=== PATIENT | male | born 1960 | race Two or more races ===

== ENCOUNTER 2025-04-06 09:09 | Outpatient (AMB) | payer MEDICAID, SELFPAY ==
--- NOTE | 2025-04-06 09:14 | HO.NEPHOV_ITS ---
Vital Signs 04/06/25 09:35 Height 5 ft 6 in Weight 197 lb BMI 31.8 BP 124/80 Blood Pressure Location Lt brachial Position Sitting Pulse 65 Pulse Source Pulse Oximeter Pulse Oximetry (%) 97 Oxygen Delivery Method Room Air Intake Visit Reasons: ENP: Kidney Stone-LVM Review Analyst Required: Yes Review Analyst Language: Sem Manager Services: Review Analyst Offered & Declined ([facility] Review Analyst services refused, patient accompanied by daughter. ) Accompanied by: Daughter Allergies No Known Allergies Allergy (Verified 04/06/25 09:34) HPI Comments Details: I had the pleasure of seeing Brad in consultation for renal stones. He is 64 years of age and has been having renal calculi since late . He has lower back pain as well as intermittent B/L flank pain without hematuria. He had 2 ESWL. He has family H/O renal calculi( brother and daughter) but no ESRD or renal transplantation. He consumes normal diet. He has no urinary symptoms, fever, chills, nausea, vomiting. He denies taking excessive NSAID's. He has no H/O UTI's or JOSE. He denies hyperuricemia or gout. He claims to maintain good hydration. He is not a diabetic and his BP has been at goal. He had no new systemic complaints at the time of this office visit [facility] Medical History (Updated 04/06/25 @ 09:15 by James Arechiga MD) Kidney stone Surgical History (Updated 04/02/25 @ 09:03 by Daina Moyer MA) H/O abdominal surgery Family History (Updated 04/02/25 @ 09:05 by Daina Moyer MA) Mother Lung cancer Father Liver cirrhosis Review of Systems Const All systems reviewed & are unremarkable except as noted in HPI and below Physical Exam Const General: comfortable and no acute distress Orientation/consciousness: patient oriented x3 HEENT Head: Yes normocephalic Mouth: Normal oral and palatal mucosa present Eyes EOM: EOMs intact bilaterally Neck Neck: Yes supple Resp Auscultation: clear to auscultation bilaterally Cardio Jugular venous distension: no JVD Rate: regular rate GI Palpation (GI): Soft to palpation Auscultation: normal bowel sounds General: Yes no CVA tenderness Back/Spine/Pelvis Back: no CVA tenderness Skin General skin exam: no rashes or lesions noted Neuro General: patient oriented x3 and moves all extremities Extrem General: Yes no pedal edema Assessment & Plan Assessment & Plan (1) Kidney stone: Code(s): N20.0 - Calculus of kidney Category: Medical Plan Low sodium diet; Less meat, more fruits and vegetables in diet Renal USS, serum uric acid, ca, PTH and 24 hour urine studies ordered Needs to maintain good hydration; Will be a candidate for HCTZ &/ K citrate No family H/O oxaluria, medullary sponge kidney, ESRD/ renal Tx Further management is pending evolving data; Answered all questions Orders: Orders Uric Acid Today N20.0 - Calculus of kidney Electrolytes Today N20.0 - Calculus of kidney Protein Creatinine Ratio, Ur Today N20.0 - Calculus of kidney Calcium Today N20.0 - Calculus of kidney Blood Urea Nitrogen Today N20.0 - Calculus of kidney Creatinine Today N20.0 - Calculus of kidney Parathyroid Hormone Intact Today N20.0 - Calculus of kidney UA and rflx microscopic Today N20.0 - Calculus of kidney US renal BI 3 Weeks N20.0 - Calculus of kidney Coding Level of Care Code New Pt Level 4 (57389) Diagnoses Kidney stone N20.0
[2025-04-06 09:35] VITALS: BP 124/80; PULSE 65; O2SAT 97; BMI 31.8
--- OUTSIDE RECORDS SUMMARY | 2025-04-06 11:28 | XMS_ITS ---
Author Name [facility] Organization Unknown Care Team Organization Name Specialty Phone Email Start Date End Da te [facility] Renita Thorne MD Primary Care 05/29/2022 03/09/2024
--- OUTSIDE RECORDS SUMMARY | 2025-04-06 11:28 | XMS_ITS | Clinical Summary ---
Author Organization 175 [facility] Address [address] [place] [address] Phone Care Team Providers Care Golf Course Equipment Operator Name Role Phone Ayo Hernandez MD Primary Care Provider [phone] Allergies No known active allergies Medications No known medications Encounters Date Type Department Care Team Description 02/26/2025 Telephone Internal Medicine [facility] 175 [facility] [address] [place] [address] Ayo Hernandez MD 02/18/2025 8:45 AM EDT Office Visit Internal Medicine [facility] [address] [address] Ayo Hernandez MD Lumbar pain (Primary Dx); Kidney stones; Screening for malignant neoplasm of prostate from Last 3 Months Surgical History Surgery Date Site/Laterality Comments OTHER SURGICAL HISTORY PROCEDURE: ---- OTHER ----; COMMENT: nephrolithiasis ABDOMINAL SURGERY 05/24/2017 PROCEDURE: HISTORICAL ABDOMINAL SURGERY; COMMENT: Colonoscopy showed 30 cm of colon with a right colon-rectal anastomosis at 10 cm. Medical History Medical History Date Comments Nephrolithiasis 12/11/2017 DX:Nephrolithias is IFG (impaired fasting glucose) 12/11/2017 D X:IFG (impaired fasting glucose) Post-nasal drip 09/12/2018 DX:Post-nasal dr ip Obesity (BMI 30.0-34.9) 09/12/2018 DX:Obesi ty (BMI 30.0-34.9) Overweight (BMI 25.0-29.9) 04/24/2019 DX:Ov erweight (BMI 25.0-29.9) Family History Medical History Relation Name Comments Other: liver cirrhosis Father Pneumonia Father Lung cancer Mother Relation Name Status Comments Brother 1 Alive Brother 2 Alive Father (Age 61) Mother (Age 77) lung cance r Sister Alive Social History Tobacco Use Types Packs/Day Years Used Date Smoking Tobacco: Never Smokeless Tobacco: Never Alcohol Use Standard Drinks/Week Comments No 0 (1 standard drink = 0.6 oz pur e alcohol) Sex and Gender Information Value Date Recorded Sex Assigned at Not on file Legal Sex Male 5:38 AM EST Gender Identity Not on file Sexual Orientation Not on file Obstetrics History Last Filed Vital Signs Vital Sign Reading Time Taken Comments Blood Pressure 136/80 02/18/2025 8:47 AM EDT Pulse 61 02/18/2025 8:47 AM EDT Temperature 36.3 C (97.4 F) 02/18/2025 8:47 AM EDT Respiratory Rate - - Oxygen Saturation 97% 02/18/2025 8:47 AM EDT Inhaled Oxygen Concentration - - Weight 87.3 kg (192 lb 6.4 oz) 02/18/2025 8:47 A M EDT Height 167.6 cm (5' 6 ) 02/18/2025 8:47 AM EDT Body Mass Index 31.05 02/18/2025 8:47 AM EDT Plan of Treatment Health Maintenance Due Date Last Done Comments Pneumococcal Vaccine: 50+ Years (1 of 1 - PCV) 2010 Zoster Vaccines (1 of 2) 2010 Colorectal Cancer Screening: Colonoscopy 02/18/2024 HIV Screening 02/18/2024 Hepatitis C Screening 02/18/2024 Social Influencers of Health Screening 02/18/2024 Depression Screening 07/22/2024 COVID-19 Vaccine (4 - 2024-2 6 season) 2025 08/20/2021, 12/23/2020, 12/02/2020 Influenza Vaccine (#1) 2025 DTaP,Tdap,and Td Vaccines (2 - Td or Tdap) 03/08/2027 03/08/2017 Cholesterol Screening (Lipid Panel) 02/22/2030 02/22/2025, 12/20/2023 RSV Immunization Adult Patients (1 - 1-dose 75+ series) 2035 HIB Vaccines Aged Out No longer eligi ble based on patient's age to complete this topic HPV Vaccines Aged Out No longer eligi ble based on patient's age to complete this topic Hepatitis A Vaccines Aged Out No long er eligible based on patient's age to complete this topic Hepatitis B Vaccines Aged Out No long er eligible based on patient's age to complete this topic IPV Vaccines Aged Out No longer eligi ble based on patient's age to complete this topic MMR Vaccines Aged Out No longer eligi ble based on patient's age to complete this topic Meningococcal ACWY Vaccine Aged Out N o longer eligible based on patient's age to complete this topic Meningococcal B Vaccine Aged Out No l onger eligible based on patient's age to complete this topic RSV Immunization Patients Under 20 months Aged Out No longer eligible b ased on patient's age to complete this topic Varicella Vaccines Aged Out No longer eligible based on patient's age to complete this topic Procedures Procedure Name Priority Date/Time Associated Diagnosis Comments LOZANO URINE CULTURE TUBE Routine 02/22/2025 8:24 AM EDT Kidney stones Lumbar pain URINALYSIS WITH REFLEX MICROSCOPIC AND CULTURE Routine 02/22/2025 8:24 AM EDT Kidney stones Lumbar pain URINALYSIS WITH REFLEX MICROSCOPIC AND CULTURE Routine 02/22/2025 8:24 AM EDT Kidney stones Lumbar pain CULTURE URINE Routine 02/22/2025 8:24 AM EDT Kidney stones Lumbar pain CBC WITH AUTO DIFFERENTIAL Routine 02/22/2025 8:19 AM EDT Kidney stones Lumbar pain PROSTATE SPECIFIC ANTIGEN SCREEN Routine 02/22/2025 8:19 AM EDT Kidney stones Lumbar pain Screening for malignant neoplasm of prostate THYROID STIMULATING HORMONE Routine 02/22/2025 8:19 AM EDT Kidney stones Lumbar pain LIPID PANEL WITH REFLEX TO DIRECT LDL Routine 02/22/2025 8:19 AM EDT Kidney stones Lumbar pain COMPREHENSIVE METABOLIC PANEL Routine 02/22/2025 8:19 AM EDT Kidney stones Lumbar pain CBC AND DIFFERENTIAL Routine 02/22/2025 8:19 AM EDT Kidney stones Lumbar pain from Last 3 Months Results * (ABNORMAL) Urinalysis with reflex microscopic and culture (02/22/2025 8:24 AM EDT) Specific [place] Urine 1.018 1.003 - 1.030 LAB URINALYSIS - AUTOMATED METHOD 02/22/2025 10:11 AM [facility] pH, Urine 6.5 5.0 - 8.0 pH LAB URINALYSIS - AUTOMATED METHOD 02/22/2025 10:11 AM [facility] Leukocytes, Urine Trace(A) Negative LAB URINALYSIS - AUTOMATED METHOD 02/22/2025 10:11 AM [facility] Nitrite, Urine Negative Negative LAB URINALYSIS - AUTOMATED METHOD 02/22/2025 10:11 AM [facility] Protein, Urine Negative <=Trace mg/dL LAB URINALYSIS - AUTOMATED METHOD 02/22/2025 10:11 AM [facility] Glucose, Urine Negative Negative mg/dL LAB URINALYSIS - AUTOMATED METHOD 02/22/2025 10:11 AM [facility] Ketones, Urine Negative Negative mg/dL LAB URINALYSIS - AUTOMATED METHOD 02/22/2025 10:11 AM [facility] Urobilinogen, Urine 0.2 0.2 - 1.0 mg/dL LAB URINALYSIS - AUTOMATED METHOD 02/22/2025 10:11 AM [facility] Bilirubin, Urine Negative Negative LAB URINALYSIS - AUTOMATED METHOD 02/22/2025 10:11 AM [facility] Blood, Urine Negative Negative LAB URINALYSIS - AUTOMATED METHOD 02/22/2025 10:11 AM [facility] RBC, Urine 3.8 0 - 4 /HPF LAB URINALYSIS - AUTOMATED METHOD 02/22/2025 10:11 AM EDT [facility] WBC, Urine 2.0 0 - 4 /HPF LAB URINALYSIS - AUTOMATED METHOD 02/22/2025 10:11 AM EDT [facility] Squamous Epithelial, Urine 11 0 - 60 /LPF LAB URINALYSIS - AUTOMATED METHOD 02/22/2025 10:11 AM EDT [facility] Bacteria, Urine Negative Negative /HPF LAB URINALYSIS - AUTOMATED METHOD 02/22/2025 10:11 AM EDT [facility] Hyaline Casts, Urine 0.0 0 - 3 /LPF LAB URINALYSIS - AUTOMATED METHOD 02/22/2025 10:11 AM EDT [facility] Urine Urine specimen obtained by clean catch procedure / Unknown Non-blood Collection / Unknown 02/22/2025 8:24 AM EDT 02/22/2025 8:24 AM EDT us Ayo Hernandez MD LAB URINE ORDERABLES Final Resul t Performing Organization Address City/[facility]/ZIP Co de Phone Number [facility] [address] [place] [address], [place] [phone] * Lozano urine culture tube (02/22/2025 8:24 AM EDT) Extra Tube Hold for add-ons. 02/22/2025 10:01 AM EDT [facility] Comment:Auto resulted. Urine Urine specimen obtained by clean catch procedure / Unknown Non-blood Collection / Unknown 02/22/2025 8:24 AM EDT 02/22/2025 8:24 AM EDT us Ayo Hernandez MD LAB URINE ORDERABLES Final Resul t Performing Organization Address City/[facility]/ZIP Co de Phone Number [facility] [address] [place] [address], [place] [phone] * Culture urine (02/22/2025 8:24 AM EDT) Culture, Urine No growth 02/23/2025 8:49 AM EDT [facility] Urine Urine specimen obtained by clean catch procedure / Unknown Non-blood Collection / Unknown 02/22/2025 8:24 AM EDT 02/22/2025 10:11 AM EDT us Ayo Hernandez MD LAB MICROBIOLOGY - GENERAL ORDER SUZANNE Final Result [facility] [address] [place] [address], * Prostate specific antigen screen (02/22/2025 8:19 AM EDT) PSA 0.90 0.00 - 4.00 ng/mL LAB CHEMISTRY METHOD 02/22/2025 11:08 AM EDT [facility] Blood Venous blood specimen / Unknown Venipuncture / Unknown 02/22/2025 8:19 AM EDT 02/22/2025 8:19 AM EDT Narrative [facility] - 02/22/2025 11:08 AM EDT The Siemens Advia Centaur Chemiluminescent Immunoassay is used. Results obtained with different assay methods or kits cannot be used interchangeably. Results cannot be interpreted as absolute evidence of the presence or absence of malignant disease. us Ayo Hernandez MD LAB BLOOD ORDERABLES Final Resul t [facility] [address] [place] [address], [place] [phone] * (ABNORMAL) Lipid panel with reflex to direct LDL (02/22/2025 8:19 AM EDT) Cholesterol 164 0 - 200 mg/dL LAB CHEMISTRY METHOD 02/22/2025 10:11 AM EDT [facility] Triglycerides 148 0 - 150 mg/dL LAB CHEMISTRY METHOD 02/22/2025 10:11 AM T [facility] HDL 36(L) >=40 mg/dL LAB CHEMISTRY METHOD 02/22/2025 10:11 AM [facility] LDL Calculated 98 0 - 100 mg/dL LAB CHEMISTRY METHOD 02/22/2025 10:11 AM [facility] VLDL Cholesterol Neto 29.6 mg/dL LAB CHEMISTRY METHOD 02/22/2025 10:11 AM [facility] Non HDL Chol. (LDL+VLDL) 128 <145 mg/dL LAB CHEMISTRY METHOD 02/22/2025 10:11 AM [facility] Chol/HDL Ratio 4.6(H) 0.0 - 4.4 LAB CHEMISTRY METHOD 02/22/2025 10:11 AM [facility] Blood Venous blood specimen / Unknown Venipuncture / Unknown 02/22/2025 8:19 AM EDT 02/22/2025 8:19 AM EDT us Ayo Hernandez MD LAB BLOOD ORDERABLES Final Resul t [facility] [address] [place] [address], [place] [phone] * CBC auto differential (02/22/2025 8:19 AM EDT) WBC 6.9 4.8 - 10.8 K/mcL LAB HEMETOLOGY METHOD 02/22/2025 10:11 AM [facility] RBC 5.20 4.50 - 5.50 M/mcL LAB HEMETOLOGY METHOD 02/22/2025 10:11 AM [facility] Hemoglobin 15.6 13.5 - 17.5 g/dL LAB HEMETOLOGY METHOD 02/22/2025 10:11 AM [facility] Hematocrit 48.5 42.0 - 54.0 % LAB HEMETOLOGY METHOD 02/22/2025 10:11 AM [facility] MCV 93.1 79.0 - 98.0 FL LAB HEMETOLOGY METHOD 02/22/2025 10:11 AM [facility] MCH 29.9 27.0 - 32.0 pcg LAB HEMETOLOGY METHOD 02/22/2025 10:11 AM [facility] MCHC 32.2 32.0 - 37.0 g/dL LAB HEMETOLOGY METHOD 02/22/2025 10:11 AM [facility] RDW 12.8 11.0 - 15.0 % LAB HEMETOLOGY METHOD 02/22/2025 10:11 AM [facility] Platelets 218 130 - 400 K/mcL LAB HEMETOLOGY METHOD 02/22/2025 10:11 AM [facility] MPV 10.8 7.0 - 11.0 FL LAB HEMETOLOGY METHOD 02/22/2025 10:11 AM [facility] NRBC 0.0 <1.0 % LAB HEMETOLOGY METHOD 02/22/2025 10:11 AM [facility] NRBC Absolute 0.00 <0.10 K/mcL LAB HEMETOLOGY METHOD 02/22/2025 10:11 AM [facility] Neutrophils Relative 52.4 % LAB HEMETOLOGY METHOD 02/22/2025 10:11 AM [facility] Lymphocytes Relative 34.5 % LAB HEMETOLOGY METHOD 02/22/2025 10:11 AM [facility] Monocytes Relative 8.7 % LAB HEMETOLOGY METHOD 02/22/2025 10:11 AM [facility] Eosinophils Relative 3.2 % LAB HEMETOLOGY METHOD 02/22/2025 10:11 AM [facility] Basophils Relative 0.9 % LAB HEMETOLOGY METHOD 02/22/2025 10:11 AM EDT [facility] Immature Granulocytes Relative 0.3 % LAB HEMETOLOGY METHOD 02/22/2025 10:11 AM EDT [facility] Neutrophils Absolute 3.64 1.50 - 7.00 K/mcL LAB HEMETOLOGY METHOD 02/22/2025 10:11 AM EDT [facility] Lymphocytes Absolute 2.39 1.00 - 5.00 K/mcL LAB HEMETOLOGY METHOD 02/22/2025 10:11 AM EDT [facility] Monocytes Absolute 0.60 0.20 - 1.00 K/mcL LAB [facility]EM[facility]OLOGY [facility] Eosin[facility] Absolute 0.22 0.00 - 0.50 K/mcL LAB [facility]EMETOLOGY [facility] Basophils Absolute 0.06 0.00 - 0.20 K/mcL LAB HEMETOLOGY METHOD 02/22/2025 10:11 AM EDT [facility] Immature Granulocytes Absolute 0.02 0.00 - 0.03 K/mcL LAB HEMETOLOGY METHOD 02/22/2025 10:11 AM [facility] Blood Venous blood specimen / Unknown Venipuncture / Unknown 02/22/2025 8:19 AM EDT 02/22/2025 8:19 AM EDT us Ayo Hernandez MD LAB BLOOD ORDERABLES Final Resul t [facility] [address] [place] [address], * Thyroid stimulating hormone (02/22/2025 8:19 AM EDT) TSH 2.47 0.40 - 4.00 mcIU/mL LAB CHEMISTRY METHOD 02/22/2025 12:50 PM [facility] Blood Venous blood specimen / Unknown Venipuncture / Unknown 02/22/2025 8:19 AM EDT 02/22/2025 8:19 AM EDT us Ayo Hernandez MD LAB BLOOD ORDERABLES Final Resul t [facility] [address] [place] [address], * (ABNORMAL) Comprehensive metabolic panel (02/22/2025 8:19 AM EDT) Sodium 141 133 - 145 mmol/L LAB CHEMISTRY METHOD 02/22/2025 10:11 AM [facility] Potassium 4.9 3.5 - 5.5 mmol/L LAB CHEMISTRY METHOD 02/22/2025 10:11 AM [facility] Chloride 107 96 - 110 mmol/L LAB CHEMISTRY METHOD 02/22/2025 10:11 AM [facility] CO2 31 21 - 32 mmol/L LAB CHEMISTRY METHOD 02/22/2025 10:11 AM [facility] Anion Gap 3 3 - 11 LAB CHEMISTRY METHOD 02/22/2025 10:11 AM [facility] Glucose 111(H) 70 - 100 mg/dL LAB CHEMISTRY METHOD 02/22/2025 10:11 AM [facility] BUN 22 5 - 25 mg/dL LAB CHEMISTRY METHOD 02/22/2025 10:11 AM [facility] Creatinine 1.13 0.70 - 1.30 mg/dL LAB CHEMISTRY METHOD 02/22/2025 10:11 AM [facility] eGFR 73 >=60 mL/min/1. 73m2 LAB CHEMISTRY METHOD 02/22/2025 10:11 AM [facility] Comment:Calculation based on the Chronic Kidney Disease Epidemiology Collaboration (CKD-EPI) equation refit without adjustment for race. BUN/Creatinine Ratio 19.5 LAB CHEMISTRY METHOD 02/22/2025 10:11 AM [facility] Calcium 9.2 8.5 - 10.5 mg/dL LAB CHEMISTRY METHOD 02/22/2025 10:11 AM [facility] AST (SGOT) 20 10 - 42 unit/L LAB CHEMISTRY METHOD 02/22/2025 10:11 AM [facility] ALT (SGPT) 31 10 - 60 unit/L LAB CHEMISTRY METHOD 02/22/2025 10:11 AM [facility] Alkaline Phosphatase 106 42 - 121 unit/L LAB CHEMISTRY METHOD 02/22/2025 10:11 AM [facility] Total Protein 7.2 6.0 - 8.0 g/dL LAB CHEMISTRY METHOD 02/22/2025 10:11 AM [facility] Albumin 3.8 3.2 - 5.0 g/dL LAB CHEMISTRY METHOD 02/22/2025 10:11 AM [facility] Total Bilirubin 1.0 0.0 - 1.4 mg/dL LAB CHEMISTRY METHOD 02/22/2025 10:11 AM [facility] Blood Venous blood specimen / Unknown Venipuncture / Unknown 02/22/2025 8:19 AM EDT 02/22/2025 8:19 AM EDT us Ayo Hernandez MD LAB BLOOD ORDERABLES Final Resul t [facility] [address] [place] [address], from Last 3 Months Insurance MEDICAID - [place] Care Teams Golf Course Equipment Operator Relationship Specialty Start Date End Date Ayo Hernandez MD 175 [facility] [address] [place] [address] PCP - General Internal Medicine 01/11/25
== END 2025-04-06 10:06 | disposition home or self-care (01) ==
LOC: HO.HKAS 09:09
PROVIDERS: PCP Internal Medicine; Referring Provider Internal Medicine; Visit Provider Internal Medicine Nephrology
DX: N20.0 Calculus of kidney (principal)
CPT/HCPCS: 99204

== ENCOUNTER → 2025-04-06 09:09 | Outpatient (BNVA) | payer OTHER, SELFPAY | PROVIDERS: PCP Internal Medicine; Referring Provider Internal Medicine; Visit Provider Internal Medicine Nephrology | DX: N20.0 Calculus of kidney (principal) | CPT/HCPCS: 99202 ==

== ENCOUNTER 2025-04-13 09:03 | Outpatient (REF) | payer MEDICAID, SELFPAY ==
--- OUTSIDE RECORDS SUMMARY | 2025-04-13 10:27 | XMS_ITS | Encounter Summary ---
Author Organization [facility] Address [address] [place] [address] Care Team Providers Care Roll Dough Divider Name Role Phone Olivia Slater DO Primary Care Pro vider Unavailable Community, Pcp Primary Care Provider Unavailabl e Encounter Details Date Type Department Care Team Description 09/27/2020 [facility] Medical Records [address] [place] [id number] Marc Lunsford MD Social History Tobacco Use Types Packs/Day Years Used Date Smoking Tobacco: Never Smokeless Tobacco: Never Alcohol Use Standard Drinks/Week Comments No 0 (1 standard drink = 0.6 oz pur e alcohol) Sex Assigned at Date Recorded Not on file COVID-19 Exposure Response Date Recorded In the last month, have you been in contact with someone who was confirmed or suspected to have Coronavirus / COVID-19? No / Unsure 09/21/2020 9:52 AM EST documented as of this encounter Plan of Treatment Not on file documented as of this encounter Visit Diagnoses Not on filedocumented in this encounter Care Teams Roll Dough Divider Relationship Specialty Start Date End Date Olivia Slater DO PCP - General Internal Medicine 03/09/20 06/06/22 Community, Pcp PCP - General Internal Medicine 06/07/22 documented as of this encounter
--- OUTSIDE RECORDS SUMMARY | 2025-04-13 10:27 | XMS_ITS | Encounter Summary ---
Author Organization [facility] Address [address] [place] [address] Care Team Providers Care Pnp Name Role Phone Serene Garcia MD Primary Care Provider Un available Olivia Slater DO Primary Care Pro vider Unavailable Community, Pcp Primary Care Provider Unavailabl e Reason for Referral * EXTERNAL (Routine) - Authorized/Booked Specialty Diagnoses / Procedures Referred By Contthad t Referred To Contact Urology Procedures REFERRAL TO UROLOGY Serene Garcia MD [address] [place] [id number] Maxwell Felton MD [address] [address] Referral ID Status Reason Start Date Expiration Date V isits Requested Visits Authorized SEE NOTE Authorized/B ooked 04/05/2017 07/08/2017 1 1 Encounter Details Date Type Department Care Team Description 04/05/2017 Orders Only Adult Medicine [address] [address] Serene Garcia MD Social History Tobacco Use Types Packs/Day Years Used Date Smoking Tobacco: Never Alcohol Use Standard Drinks/Week Comments No 0 (1 standard drink = 0.6 oz pur e alcohol) Sex Assigned at Date Recorded Not on file documented as of this encounter Plan of Treatment Not on file documented as of this encounter Visit Diagnoses Not on filedocumented in this encounter Care Teams Pnp Relationship Specialty Start Date End Date Serene Garcia MD PCP - General Internal Medicine 10/17/16 Olivia Slater DO PCP - General Internal Medicine 03/09/20 06/06/22 [facility], Pcp PCP - General Internal Medicine 06/07/22 documented as of this encounter
--- OUTSIDE RECORDS SUMMARY | 2025-04-13 10:27 | XMS_ITS | Encounter Summary ---
Author [facility] Address [address] [place] [address] Care Team Providers Care Bus Person Dishwasher Name Role Phone Serene Garcia MD Primary Care Provider Un available Olivia Slater DO Primary Care Pro vider Unavailable Community, Pcp Primary Care Provider Unavailabl e Encounter Details Date Type Department Care Team Description 03/12/2017 Release of Information Medical Records [address] [place] [address] Abstract, Provider Social History Tobacco Use Types Packs/Day Years Used Date Smoking Tobacco: Never Alcohol Use Standard Drinks/Week Comments No 0 (1 standard drink = 0.6 oz pur e alcohol) Sex Assigned at Date Recorded Not on file documented as of this encounter Plan of Treatment Not on file documented as of this encounter Visit Diagnoses Not on filedocumented in this encounter Care Teams Bus Person Dishwasher Relationship Specialty Start Date End Date Serene Garcia MD PCP - General Internal Medicine 10/17/16 Olivia Slater DO PCP - General Internal Medicine 03/09/20 06/06/22 Community, Pcp PCP - General Internal Medicine 06/07/22 documented as of this encounter
--- OUTSIDE RECORDS SUMMARY | 2025-04-13 10:27 | XMS_ITS | Clinical Summary ---
Author Organization 175 [facility] Address [address] [place] [address] Phone Care Team Providers Care Ophthalmology Assistant Name Role Phone Ayo Hernandez MD Primary Care Provider [phone] Allergies No known active allergies Medications No known medications Encounters Date Type Department Care Team Description 02/26/2025 Telephone Internal Medicine [facility] 175 [facility] [address] [place] [address] Ayo Hernandez MD 02/18/2025 8:45 AM EDT Office Visit Internal Medicine [facility] [address] [address] Ayo Hernandez MD Lumbar pain [...] and culture (02/22/2025 8:24 AM EDT) Specific [place] Urine 1.018 1.003 - 1.030 LAB URINALYSIS - AUTOMATED METHOD 02/22/2025 10:11 AM [facility] pH, Urine 6.5 5.0 - 8.0 pH LAB URINALYSIS - AUTOMATED METHOD 02/22/2025 10:11 AM [facility] Leukocytes, Urine Trace(A) Negative LAB URINALYSIS - AUTOMATED METHOD 02/22/2025 10:11 AM [facility] Nitrite, Urine Negative Negative LAB URINALYSIS - AUTOMATED METHOD 02/22/2025 10:11 AM [facility] Protein, Urine Negative <=Trace mg/dL LAB URINALYSIS - AUTOMATED METHOD 02/22/2025 10:11 AM [facility] Glucose, Urine Negative Negative mg/dL LAB URINALYSIS - AUTOMATED METHOD 02/22/2025 10:11 AM [facility] Ketones, Urine Negative Negative mg/dL LAB URINALYSIS - AUTOMATED METHOD 02/22/2025 10:11 AM [facility] Urobilinogen, Urine 0.2 0.2 - 1.0 mg/dL LAB URINALYSIS - AUTOMATED METHOD 02/22/2025 10:11 AM [facility] Bilirubin, Urine Negative Negative LAB URINALYSIS - AUTOMATED METHOD 02/22/2025 10:11 AM [facility] Blood, Urine Negative Negative LAB URINALYSIS - AUTOMATED METHOD 02/22/2025 10:11 AM [facility] RBC, Urine 3.8 0 - 4 /HPF LAB URINALYSIS - AUTOMATED METHOD 02/22/2025 10:11 AM EDT [facility] WBC, Urine 2.0 0 - 4 /HPF LAB URINALYSIS - AUTOMATED METHOD 02/22/2025 10:11 AM EDT [facility] Squamous Epithelial, Urine 11 0 - 60 /LPF LAB URINALYSIS - AUTOMATED METHOD 02/22/2025 10:11 AM EDT [facility] Bacteria, Urine Negative Negative /HPF LAB URINALYSIS - AUTOMATED METHOD 02/22/2025 10:11 AM EDT [facility] Hyaline Casts, Urine 0.0 0 - 3 /LPF LAB URINALYSIS - AUTOMATED METHOD 02/22/2025 10:11 AM EDT [facility] Urine Urine specimen obtained by clean catch procedure / Unknown Non-blood Collection / Unknown 02/22/2025 8:24 AM EDT 02/22/2025 8:24 AM EDT us Ayo Hernandez MD LAB URINE ORDERABLES Final Resul t Performing Organization Address City/[facility]/ZIP Co de Phone Number [facility] [address] [place] [address], [place] [phone] * Lozano urine culture tube (02/22/2025 8:24 AM EDT) Extra Tube Hold for add-ons. 02/22/2025 10:01 AM EDT [facility] Comment:Auto resulted. Urine Urine specimen obtained by clean catch procedure / Unknown Non-blood Collection / Unknown 02/22/2025 8:24 AM EDT 02/22/2025 8:24 AM EDT us Ayo Hernandez MD LAB URINE ORDERABLES Final Resul t Performing Organization Address City/[facility]/ZIP Co de Phone Number [facility] [address] [place] [address], [place] [phone] * Culture urine (02/22/2025 8:24 AM EDT) Culture, Urine No growth 02/23/2025 8:49 AM EDT [facility] Urine Urine specimen obtained by clean catch procedure / Unknown Non-blood Collection / Unknown 02/22/2025 8:24 AM EDT 02/22/2025 10:11 AM EDT us Ayo Hernandez MD LAB MICROBIOLOGY - GENERAL ORDER SUZANNE Final Result [facility] [address] [place] [address], * Prostate specific antigen screen (02/22/2025 8:19 AM EDT) PSA 0.90 0.00 - 4.00 ng/mL LAB CHEMISTRY METHOD 02/22/2025 11:08 AM EDT [facility] Blood Venous blood specimen / Unknown Venipuncture / Unknown 02/22/2025 8:19 AM EDT 02/22/2025 8:19 AM EDT Narrative [facility] - 02/22/2025 11:08 AM EDT The Siemens Advia Centaur Chemiluminescent Immunoassay is used. Results obtained with different assay methods or kits cannot be used interchangeably. Results cannot be interpreted as absolute evidence of the presence or absence of malignant disease. us Ayo Hernandez MD LAB BLOOD ORDERABLES Final Resul t [facility] [address] [place] [address], [place] [phone] * (ABNORMAL) Lipid panel with reflex to direct LDL (02/22/2025 8:19 AM EDT) Cholesterol 164 0 - 200 mg/dL LAB CHEMISTRY METHOD 02/22/2025 10:11 AM EDT [facility] Triglycerides 148 0 - 150 mg/dL LAB CHEMISTRY METHOD 02/22/2025 10:11 AM T [facility] HDL 36(L) >=40 mg/dL LAB CHEMISTRY METHOD 02/22/2025 10:11 AM [facility] LDL Calculated 98 0 - 100 mg/dL LAB CHEMISTRY METHOD 02/22/2025 10:11 AM [facility] VLDL Cholesterol Neto 29.6 mg/dL LAB CHEMISTRY METHOD 02/22/2025 10:11 AM [facility] Non HDL Chol. (LDL+VLDL) 128 <145 mg/dL LAB CHEMISTRY METHOD 02/22/2025 10:11 AM [facility] Chol/HDL Ratio 4.6(H) 0.0 - 4.4 LAB CHEMISTRY METHOD 02/22/2025 10:11 AM [facility] Blood Venous blood specimen / Unknown Venipuncture / Unknown 02/22/2025 8:19 AM EDT 02/22/2025 8:19 AM EDT us Ayo Hernandez MD LAB BLOOD ORDERABLES Final Resul t [facility] [address] [place] [address], [place] [phone] * CBC auto differential (02/22/2025 8:19 AM EDT) WBC 6.9 4.8 - 10.8 K/mcL LAB HEMETOLOGY METHOD 02/22/2025 10:11 AM [facility] RBC 5.20 4.50 - 5.50 M/mcL LAB HEMETOLOGY METHOD 02/22/2025 10:11 AM [facility] Hemoglobin 15.6 13.5 - 17.5 g/dL LAB HEMETOLOGY METHOD 02/22/2025 10:11 AM [facility] Hematocrit 48.5 42.0 - 54.0 % LAB HEMETOLOGY METHOD 02/22/2025 10:11 AM [facility] MCV 93.1 79.0 - 98.0 FL LAB HEMETOLOGY METHOD 02/22/2025 10:11 AM [facility] MCH 29.9 27.0 - 32.0 pcg LAB HEMETOLOGY METHOD 02/22/2025 10:11 AM [facility] MCHC 32.2 32.0 - 37.0 g/dL LAB HEMETOLOGY METHOD 02/22/2025 10:11 AM [facility] RDW 12.8 11.0 - 15.0 % LAB HEMETOLOGY METHOD 02/22/2025 10:11 AM [facility] Platelets 218 130 - 400 K/mcL LAB HEMETOLOGY METHOD 02/22/2025 10:11 AM [facility] MPV 10.8 7.0 - 11.0 FL LAB HEMETOLOGY METHOD 02/22/2025 10:11 AM [facility] NRBC 0.0 <1.0 % LAB HEMETOLOGY METHOD 02/22/2025 10:11 AM [facility] NRBC Absolute 0.00 <0.10 K/mcL LAB HEMETOLOGY METHOD 02/22/2025 10:11 AM [facility] Neutrophils Relative 52.4 % LAB HEMETOLOGY METHOD 02/22/2025 10:11 AM [facility] Lymphocytes Relative 34.5 % LAB HEMETOLOGY METHOD 02/22/2025 10:11 AM [facility] Monocytes Relative 8.7 % LAB HEMETOLOGY METHOD 02/22/2025 10:11 AM [facility] Eosinophils Relative 3.2 % LAB HEMETOLOGY METHOD 02/22/2025 10:11 AM [facility] Basophils Relative 0.9 % LAB HEMETOLOGY METHOD 02/22/2025 10:11 AM EDT [facility] Immature Granulocytes Relative 0.3 % LAB HEMETOLOGY METHOD 02/22/2025 10:11 AM EDT [facility] Neutrophils Absolute 3.64 1.50 - 7.00 K/mcL LAB HEMETOLOGY METHOD 02/22/2025 10:11 AM EDT [facility] Lymphocytes Absolute 2.39 1.00 - 5.00 K/mcL LAB HEMETOLOGY METHOD 02/22/2025 10:11 AM EDT [facility] Monocytes Absolute 0.60 0.20 - 1.00 K/mcL LAB HEMETOLOGY METHOD 02/22[facility]2025 [facility] Eosinophils Absolute 0.22 0.00 - 0.50 K/mcL LAB HEMETOLOGY METHOD 02/22/2025 10:11 [facility] Basophils Absolute 0.06 0.00 - 0.20 K/mcL LAB HEMETOLOGY METHOD 02/22/2025 10:11 AM EDT [facility] Immature Granulocytes Absolute 0.02 0.00 - 0.03 K/mcL LAB HEMETOLOGY METHOD 02/22/2025 10:11 AM [facility] Blood Venous blood specimen / Unknown Venipuncture / Unknown 02/22/2025 8:19 AM EDT 02/22/2025 8:19 AM EDT us Ayo Hernandez MD LAB BLOOD ORDERABLES Final Resul t [facility] [address] [place] [address], * Thyroid stimulating hormone (02/22/2025 8:19 AM EDT) TSH 2.47 0.40 - 4.00 mcIU/mL LAB CHEMISTRY METHOD 02/22/2025 12:50 PM [facility] Blood Venous blood specimen / Unknown Venipuncture / Unknown 02/22/2025 8:19 AM EDT 02/22/2025 8:19 AM EDT us Ayo Hernandez MD LAB BLOOD ORDERABLES Final Resul t [facility] [address] [place] [address], * (ABNORMAL) Comprehensive metabolic panel (02/22/2025 8:19 AM EDT) Sodium 141 133 - 145 mmol/L LAB CHEMISTRY METHOD 02/22/2025 10:11 AM [facility] Potassium 4.9 3.5 - 5.5 mmol/L LAB CHEMISTRY METHOD 02/22/2025 10:11 AM [facility] Chloride 107 96 - 110 mmol/L LAB CHEMISTRY METHOD 02/22/2025 10:11 AM [facility] CO2 31 21 - 32 mmol/L LAB CHEMISTRY METHOD 02/22/2025 10:11 AM [facility] Anion Gap 3 3 - 11 LAB CHEMISTRY METHOD 02/22/2025 10:11 AM [facility] Glucose 111(H) 70 - 100 mg/dL LAB CHEMISTRY METHOD 02/22/2025 10:11 AM [facility] BUN 22 5 - 25 mg/dL LAB CHEMISTRY METHOD 02/22/2025 10:11 AM [facility] Creatinine 1.13 0.70 - 1.30 mg/dL LAB CHEMISTRY METHOD 02/22/2025 10:11 AM [facility] eGFR 73 >=60 mL/min/1. 73m2 LAB CHEMISTRY METHOD 02/22/2025 10:11 AM [facility] Comment:Calculation based on the Chronic Kidney Disease Epidemiology Collaboration (CKD-EPI) equation refit without adjustment for race. BUN/Creatinine Ratio 19.5 LAB CHEMISTRY METHOD 02/22/2025 10:11 AM [facility] Calcium 9.2 8.5 - 10.5 mg/dL LAB CHEMISTRY METHOD 02/22/2025 10:11 AM [facility] AST (SGOT) 20 10 - 42 unit/L LAB CHEMISTRY METHOD 02/22/2025 10:11 AM [facility] ALT (SGPT) 31 10 - 60 unit/L LAB CHEMISTRY METHOD 02/22/2025 10:11 AM [facility] Alkaline Phosphatase 106 42 - 121 unit/L LAB CHEMISTRY METHOD 02/22/2025 10:11 AM [facility] Total Protein 7.2 6.0 - 8.0 g/dL LAB CHEMISTRY METHOD 02/22/2025 10:11 AM [facility] Albumin 3.8 3.2 - 5.0 g/dL LAB CHEMISTRY METHOD 02/22/2025 10:11 AM [facility] Total Bilirubin 1.0 0.0 - 1.4 mg/dL LAB CHEMISTRY METHOD 02/22/2025 10:11 AM [facility] Blood Venous blood specimen / Unknown Venipuncture / Unknown 02/22/2025 8:19 AM EDT 02/22/2025 8:19 AM EDT us Ayo Hernandez MD LAB BLOOD ORDERABLES Final Resul t [facility] [address] [place] [address], from Last 3 Months Insurance MEDICAID - [place] Care Teams Ophthalmology Assistant Relationship Specialty Start Date End Date Ayo Hernandez MD 175 [facility] [address] [place] [address] PCP - General Internal Medicine 01/11/25
[2025-04-13 13:26] LABS: Appearance Urine Turbid; Glucose Urine UA Negative (Negative); PH 6.5 (5.0-9.0); Specific Gravity - Urine 1.025 (1.005-1.025)
[2025-04-13 14:07] LABS: Parathyroid Hormone Intact 54.5 pg/mL (8.7-77.1)
[2025-04-13 14:12] LABS: Anion Gap 11 (12-20); Blood Urea Nitrogen 22 mg/dL (9-16); Calcium 9.4 mg/dL (8.4-10.2); Carbon Dioxide 29 mmol/L (22-29); Chloride 107 mmol/L (96-108); Estimated Glomerular Filt Rate > 60; Potassium 4.5 mmol/L (3.3-5.1); Sodium 142 mmol/L (135-145)
[2025-04-13 14:15] LABS: Total Protein Urine Random < 7 mg/dL (<12)
[2025-04-13 14:20] LABS: Creatinine, mg/dL 135.10; Sodium, 24 Hr Urine 146.0 mmol/L
[2025-04-13 14:35] LABS: Creatinine, mg/dL 136.38; Uric Acid, mg/dL 58.4 mg/dL
[2025-04-13 14:38] LABS: Uric Acid 5.4 mg/dL (3.4-7.0)
[2025-04-13 20:12] LABS: Total Volume 24 Hour Urine 1275 mL
[2025-04-13 20:13] LABS: Total Volume 24 Hour Urine 1275 mL
[2025-04-18 16:35] LABS: 24hr Urine Total Volume 1275 mL; Citric Acid, 24hr Urine 499 mg/24 h (100-1300); Citric Acid/Creat Ratio 24U 285 mg/g creat (60-660); Creatinine, 24U 1.75 g/24 h (0.50-2.15)
[2025-04-22 04:39] LABS: 24hr Urine Total Volume 1275 mL; Oxalic Acid 24 Urine 22.8 mg/24 h (3.6-38.0)
[2025-04-25 18:02] LABS: Calcium/Creatinine Ratio 169 mg/g creat (30-210); Creatinine 24Hr Urine 1.79 g/24 h (0.50-2.15)
== END 2025-04-13 09:04 | disposition home or self-care (01) ==
LOC: HO.HKASLDS 09:03
PROVIDERS: Visit Provider Internal Medicine Nephrology
DX: N20.0 Calculus of kidney (principal)
CPT/HCPCS: 36415; 80051; 81003; 82310; 82340; 82507; 82565; 82570; 83945; 83970; 84156; 84300; 84520; 84550; 84560

== ENCOUNTER 2025-05-06 11:07 | Outpatient (AMB) | payer MEDICAID, SELFPAY ==
--- NOTE | 2025-05-06 11:16 | HO.NEPHOV_ITS ---
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 He is 64 years of age and has been having renal calculi since late . He has lower back pain as well as intermittent B/L flank pain without hematuria. He had 2 ESWL. He has family H/O renal calculi( brother and daughter) but no ESRD or renal transplantation. He consumes normal diet. He has no urinary symptoms, fever, chills, nausea, vomiting. He denies taking excessive NSAID's. He has no H/O UTI's or JOSE. He denies hyperuricemia or gout. He claims to maintain good hydration. He is not a diabetic and his BP has been at goal. He had no new systemic complaints at the time of this office visit [facility] Medical History (Updated 05/06/25 @ 11:30 by James Arechiga MD) Kidney stone Surgical History H/O abdominal surgery Family History Mother Lung cancer Father Liver cirrhosis Review of Systems Const All systems reviewed & are unremarkable except as noted in HPI and below Physical Exam Vital Signs: Last Vital Signs Pulse 60 05/06/25 11:17 BP 114/80 05/06/25 11:17 Pulse Ox 98 05/06/25 11:17 Oxygen Delivery Method Room Air 05/06/25 11:17 BMI result Body Mass Index 31.0 Const General: comfortable and no acute distress Orientation/consciousness: patient oriented x3 HEENT Head: Yes normocephalic Mouth: Normal oral and palatal mucosa present Eyes EOM: EOMs intact bilaterally Neck Neck: Yes supple Resp Auscultation: clear to auscultation bilaterally Cardio Jugular venous distension: no JVD Rate: regular rate GI Palpation (GI): Soft to palpation Auscultation: normal bowel sounds General: Yes no CVA tenderness Back/Spine/Pelvis Back: no CVA tenderness Skin General skin exam: no rashes or lesions noted Neuro General: patient oriented x3 and moves all extremities Extrem General: Yes no pedal edema Results Reviewed Nephrology Results: Sodium, (135-145) 142 mmol/L 04/13/25 Potassium, (3.3-5.1) 4.5 mmol/L 04/13/25 Chloride, (96-108) 107 mmol/L 04/13/25 Carbon Dioxide, (22-29) 29 mmol/L 04/13/25 BUN, (9-16) 22 mg/dL H 04/13/25 Creatinine, (0.5-1.4) 1.03 mg/dL 04/13/25 Calcium, (8.4-10.2) 9.4 mg/dL 04/13/25 PTH Intact, (8.7-77.1) 54.5 pg/mL 04/13/25 Urine Protein, (Neg-Trace) Negative mg/dL 04/13/25 Urine Creatinine 166.35 mg/dL 04/13/25 Protein/Creatinin Ratio TNP 04/13/25 Assessment & Plan Assessment & Plan (1) Kidney stone: Code(s): N20.0 - Calculus of kidney Category: Medical (2) Hypercalciuria: Code(s): R82.994 - Hypercalciuria Category: Medical Plan Low sodium diet; Less meat, more fruits and vegetables in diet Renal US( pending)., serum uric acid, ca, PTH and 24 hour urine studies reviewed Needs to maintain good hydration; Started on HCTZ 12.5 mg daily( side effects explained) No family H/O oxaluria, medullary sponge kidney, ESRD/ renal Tx Further management is pending evolving data; Answered all questions Orders: Orders Electrolytes 2 Months N20.0 - Calculus of kidney, R82.994 - Hypercalciuria Calcium 2 Months N20.0 - Calculus of kidney, R82.994 - Hypercalciuria Blood Urea Nitrogen 2 Months N20.0 - Calculus of kidney, R82.994 - Hypercalciuria Creatinine 2 Months N20.0 - Calculus of kidney, R82.994 - Hypercalciuria Medications: New hydrochlorothiazide 12.5 mg PO DAILY 90 tabs 4RF Coding Level of Care Code Est Pt Level 4 (64027) Diagnoses Kidney stone N20.0 Hypercalciuria R82.994
[2025-05-06 11:17] VITALS: BP 114/80; PULSE 60; O2SAT 98; BMI 31.0
--- OUTSIDE RECORDS SUMMARY | 2025-05-06 14:13 | XMS_ITS | Clinical Summary ---
Author Organization 175 [facility] Address 175 [place] [address] Phone Care Team Providers Care Preparer Name Role Phone Ayo Hernandez MD Primary Care Provider [phone] Allergies No known active allergies Medications No known medications Encounters Date Type Department Care Team Description 02/26/2025 Telephone Internal Medicine [facility] 175 [facility] [address] [place] [address] Ayo Hernandez MD 02/18/2025 8:45 AM EDT Office Visit Internal Medicine [facility] [address] [address] Ayo Hernandez MD Lumbar pain [...] Health Maintenance Due Date Last Done Comments Colorectal Cancer Screening: Colonoscopy 1960 Pneumococcal Vaccine: 50+ Years (1 of 1 - PCV) 2010 Zoster Vaccines (1 of 2) 2010 HIV Screening 02/18/2024 Hepatitis C Screening 02/18/2024 [...] and culture (02/22/2025 8:24 AM EDT) Specific [place] Urine 1.018 1.003 - 1.030 LAB URINALYSIS - AUTOMATED METHOD 02/22/2025 10:11 AM [facility] pH, Urine 6.5 5.0 - 8.0 pH LAB URINALYSIS - AUTOMATED METHOD 02/22/2025 10:11 AM [facility] Leukocytes, Urine Trace(A) Negative LAB URINALYSIS - AUTOMATED METHOD 02/22/2025 10:11 AM [facility] Nitrite, Urine Negative Negative LAB URINALYSIS - AUTOMATED METHOD 02/22/2025 10:11 AM [facility] Protein, Urine Negative <=Trace mg/dL LAB URINALYSIS - AUTOMATED METHOD 02/22/2025 10:11 AM [facility] Glucose, Urine Negative Negative mg/dL LAB URINALYSIS - AUTOMATED METHOD 02/22/2025 10:11 AM [facility] Ketones, Urine Negative Negative mg/dL LAB URINALYSIS - AUTOMATED METHOD 02/22/2025 10:11 AM [facility] Urobilinogen, Urine 0.2 0.2 - 1.0 mg/dL LAB URINALYSIS - AUTOMATED METHOD 02/22/2025 10:11 AM [facility] Bilirubin, Urine Negative Negative LAB URINALYSIS - AUTOMATED METHOD 02/22/2025 10:11 AM [facility] Blood, Urine Negative Negative LAB URINALYSIS - AUTOMATED METHOD 02/22/2025 10:11 AM [facility] RBC, Urine 3.8 0 - 4 /HPF LAB URINALYSIS - AUTOMATED METHOD 02/22/2025 10:11 AM EDT [facility] WBC, Urine 2.0 0 - 4 /HPF LAB URINALYSIS - AUTOMATED METHOD 02/22/2025 10:11 AM EDT [facility] Squamous Epithelial, Urine 11 0 - 60 /LPF LAB URINALYSIS - AUTOMATED METHOD 02/22/2025 10:11 AM EDT [facility] Bacteria, Urine Negative Negative /HPF LAB URINALYSIS - AUTOMATED METHOD 02/22/2025 10:11 AM EDT [facility] Hyaline Casts, Urine 0.0 0 - 3 /LPF LAB URINALYSIS - AUTOMATED METHOD 02/22/2025 10:11 AM EDT [facility] Urine Urine specimen obtained by clean catch procedure / Unknown Non-blood Collection / Unknown 02/22/2025 8:24 AM EDT 02/22/2025 8:24 AM EDT us Ayo Hernandez MD LAB URINE ORDERABLES Final Resul t Performing Organization Address [facility]/ZIP Co de Phone Number [facility] [address] [place] [address], [place] [phone] * Lozano urine culture tube (02/22/2025 8:24 AM EDT) Extra Tube Hold for add-ons. 02/22/2025 10:01 AM EDT [facility] Comment:Auto resulted. Urine Urine specimen obtained by clean catch procedure / Unknown Non-blood Collection / Unknown 02/22/2025 8:24 AM EDT 02/22/2025 8:24 AM EDT us Ayo Hernandez MD LAB URINE ORDERABLES Final Resul t Performing Organization Address [facility]/ZIP Co de Phone Number [facility] [address] [place] [address], [place] [phone] * Culture urine (02/22/2025 8:24 AM EDT) Culture, Urine No growth 02/23/2025 8:49 AM EDT [facility] Urine Urine specimen obtained by clean catch procedure / Unknown Non-blood Collection / Unknown 02/22/2025 8:24 AM EDT 02/22/2025 10:11 AM EDT us Ayo Hernandez MD LAB MICROBIOLOGY - GENERAL ORDER SUZANNE Final Result [facility] [address] [place] [address], * Prostate specific antigen screen (02/22/2025 8:19 AM EDT) PSA 0.90 0.00 - 4.00 ng/mL LAB CHEMISTRY METHOD 02/22/2025 11:08 AM EDT [facility] Blood Venous blood specimen / Unknown Venipuncture / Unknown 02/22/2025 8:19 AM EDT 02/22/2025 8:19 AM EDT Narrative [facility] - 02/22/2025 11:08 AM EDT The Siemens Advia Centaur Chemiluminescent Immunoassay is used. Results obtained with different assay methods or kits cannot be used interchangeably. Results cannot be interpreted as absolute evidence of the presence or absence of malignant disease. us Ayo Hernandez MD LAB BLOOD ORDERABLES Final Resul t [facility] [address] [place] [address], [place] [phone] * (ABNORMAL) Lipid panel with reflex to direct LDL (02/22/2025 8:19 AM EDT) Cholesterol 164 0 - 200 mg/dL LAB CHEMISTRY METHOD 02/22/2025 10:11 AM EDT [facility] Triglycerides 148 0 - 150 mg/dL LAB CHEMISTRY METHOD 02/22/2025 10:11 AM T [facility] HDL 36(L) >=40 mg/dL LAB CHEMISTRY METHOD 02/22/2025 10:11 AM [facility] LDL Calculated 98 0 - 100 mg/dL LAB CHEMISTRY METHOD 02/22/2025 10:11 AM [facility] VLDL Cholesterol Neto 29.6 mg/dL LAB CHEMISTRY METHOD 02/22/2025 10:11 AM [facility] Non HDL Chol. (LDL+VLDL) 128 <145 mg/dL LAB CHEMISTRY METHOD 02/22/2025 10:11 AM [facility] Chol/HDL Ratio 4.6(H) 0.0 - 4.4 LAB CHEMISTRY METHOD 02/22/2025 10:11 AM [facility] Blood Venous blood specimen / Unknown Venipuncture / Unknown 02/22/2025 8:19 AM EDT 02/22/2025 8:19 AM EDT us Ayo Hernandez MD LAB BLOOD ORDERABLES Final Resul t [facility] [address] [place] [address], [place] [phone] * CBC auto differential (02/22/2025 8:19 AM EDT) WBC 6.9 4.8 - 10.8 K/mcL LAB HEMETOLOGY METHOD 02/22/2025 10:11 AM T [facility] RBC 5.20 4.50 - 5.50 M/mcL LAB HEMETOLOGY METHOD 02/22/2025 10:11 AM [facility] Hemoglobin 15.6 13.5 - 17.5 g/dL LAB HEMETOLOGY METHOD 02/22/2025 10:11 AM [facility] Hematocrit 48.5 42.0 - 54.0 % LAB HEMETOLOGY METHOD 02/22/2025 10:11 AM [facility] MCV 93.1 79.0 - 98.0 FL LAB HEMETOLOGY METHOD 02/22/2025 10:11 AM [facility] MCH 29.9 27.0 - 32.0 pcg LAB HEMETOLOGY METHOD 02/22/2025 10:11 AM [facility] MCHC 32.2 32.0 - 37.0 g/dL LAB HEMETOLOGY METHOD 02/22/2025 10:11 AM [facility] RDW 12.8 11.0 - 15.0 % LAB HEMETOLOGY METHOD 02/22/2025 10:11 AM [facility] Platelets 218 130 - 400 K/mcL LAB HEMETOLOGY METHOD 02/22/2025 10:11 AM [facility] MPV 10.8 7.0 - 11.0 FL LAB HEMETOLOGY METHOD 02/22/2025 10:11 AM [facility] NRBC 0.0 <1.0 % LAB HEMETOLOGY METHOD 02/22/2025 10:11 AM [facility] NRBC Absolute 0.00 <0.10 K/mcL LAB HEMETOLOGY METHOD 02/22/2025 10:11 AM [facility] Neutrophils Relative 52.4 % LAB HEMETOLOGY METHOD 02/22/2025 10:11 AM [facility] Lymphocytes Relative 34.5 % LAB HEMETOLOGY METHOD 02/22/2025 10:11 AM [facility] Monocytes Relative 8.7 % LAB HEMETOLOGY METHOD 02/22/2025 10:11 AM [facility] Eosinophils Relative 3.2 % LAB HEMETOLOGY METHOD 02/22/2025 10:11 AM [facility] Basophils Relative 0.9 % LAB HEMETOLOGY METHOD 02/22/2025 10:11 AM EDT [facility] Immature Granulocytes Relative 0.3 % LAB HEMETOLOGY METHOD 02/22/2025 10:11 AM EDT [facility] Neutrophils Absolute 3.64 1.50 - 7.00 K/mcL LAB HEMETOLOGY METHOD 02/22/2025 10:11 AM EDT [facility] Lymphocytes Absolute 2.39 1.00 - 5.00 K/mcL LAB HEMETOLOGY METHOD 02/22/2025 10:11 AM EDT [facility] Monocytes Absolute 0.60 0.20 - 1.00 K/mcL LAB HEMETOLOGY METHOD 02/22[facility]2025 [facility] Eosinophils Absolute 0.22 0.00 - 0.50 K/mcL LAB HEMETOLOGY METHOD 02/22/2025 10:[facility] Basophils Absolute 0.06 0.00 - 0.20 K/mcL LAB HEMETOLOGY METHOD 02/22/2025 10:[facility] Immature Granulocytes Absolute 0.02 0.00 - 0.03 K/mcL LAB HEMETOLOGY METHOD 02/22/2025 10:11 AM [facility] Blood Venous blood specimen / Unknown Venipuncture / Unknown 02/22/2025 8:19 AM EDT 02/22/2025 8:19 AM EDT us Ayo Hernandez MD LAB BLOOD ORDERABLES Final Resul t [facility] [address] [place] [address], * Thyroid stimulating hormone (02/22/2025 8:19 AM EDT) TSH 2.47 0.40 - 4.00 mcIU/mL LAB CHEMISTRY METHOD 02/22/2025 12:50 PM [facility] Blood Venous blood specimen / Unknown Venipuncture / Unknown 02/22/2025 8:19 AM EDT 02/22/2025 8:19 AM EDT us Ayo Hernandez MD LAB BLOOD ORDERABLES Final Resul t [facility] [address] [place] [address], * (ABNORMAL) Comprehensive metabolic panel (02/22/2025 8:19 AM EDT) Sodium 141 133 - 145 mmol/L LAB CHEMISTRY METHOD 02/22/2025 10:11 AM [facility] Potassium 4.9 3.5 - 5.5 mmol/L LAB CHEMISTRY METHOD 02/22/2025 10:11 AM [facility] Chloride 107 96 - 110 mmol/L LAB CHEMISTRY METHOD 02/22/2025 10:11 AM [facility] CO2 31 21 - 32 mmol/L LAB CHEMISTRY METHOD 02/22/2025 10:11 AM [facility] Anion Gap 3 3 - 11 LAB CHEMISTRY METHOD 02/22/2025 10:11 AM [facility] Glucose 111(H) 70 - 100 mg/dL LAB CHEMISTRY METHOD 02/22/2025 10:11 AM [facility] BUN 22 5 - 25 mg/dL LAB CHEMISTRY METHOD 02/22/2025 10:11 AM [facility] Creatinine 1.13 0.70 - 1.30 mg/dL LAB CHEMISTRY METHOD 02/22/2025 10:11 AM [facility] eGFR 73 >=60 mL/min/1. 73m2 LAB CHEMISTRY METHOD 02/22/2025 10:11 AM [facility] Comment:Calculation based on the Chronic Kidney Disease Epidemiology Collaboration (CKD-EPI) equation refit without adjustment for race. BUN/Creatinine Ratio 19.5 LAB CHEMISTRY METHOD 02/22/2025 10:11 AM [facility] Calcium 9.2 8.5 - 10.5 mg/dL LAB CHEMISTRY METHOD 02/22/2025 10:11 AM [facility] AST (SGOT) 20 10 - 42 unit/L LAB CHEMISTRY METHOD 02/22/2025 10:11 AM [facility] ALT (SGPT) 31 10 - 60 unit/L LAB CHEMISTRY METHOD 02/22/2025 10:11 AM [facility] Alkaline Phosphatase 106 42 - 121 unit/L LAB CHEMISTRY METHOD 02/22/2025 10:11 AM [facility] Total Protein 7.2 6.0 - 8.0 g/dL LAB CHEMISTRY METHOD 02/22/2025 10:11 AM [facility] Albumin 3.8 3.2 - 5.0 g/dL LAB CHEMISTRY METHOD 02/22/2025 10:11 AM [facility] Total Bilirubin 1.0 0.0 - 1.4 mg/dL LAB CHEMISTRY METHOD 02/22/2025 10:11 AM [facility] Blood Venous blood specimen / Unknown Venipuncture / Unknown 02/22/2025 8:19 AM EDT 02/22/2025 8:19 AM EDT us Ayo Hernandez MD LAB BLOOD ORDERABLES Final Resul t [facility] [address] [place] [address], [place] [phone] from Last 3 Months Insurance MEDICAID - [place] [facility] Care Teams Preparer Relationship Specialty Start Date End Date Ayo Hernandez MD [address] [place] [id number] PCP - General Internal Medicine 01/11/25
== END 2025-05-06 11:34 | disposition home or self-care (01) ==
LOC: HO.HKAS 11:07
PROVIDERS: PCP Internal Medicine; Visit Provider Internal Medicine Nephrology
DX: N20.0 Calculus of kidney (principal); R82.994 Hypercalciuria
CPT/HCPCS: 99214

== ENCOUNTER → 2025-05-06 11:07 | Outpatient (BNVA) | payer MEDICAID, SELFPAY | PROVIDERS: PCP Internal Medicine; Visit Provider Internal Medicine Nephrology | DX: N20.0 Calculus of kidney (principal); R82.994 Hypercalciuria | CPT/HCPCS: 99212 ==

== ENCOUNTER 2025-06-01 14:22 | Outpatient (REF) | payer MEDICARE, OTHER, SELFPAY ==
--- NOTE | ~2025-06-01 | US_ITS ---
EXAMINATION: US RETROPERITONEAL LIMITED (RENAL ONLY) CLINICAL INFORMATION: N20.0. COMPARISON: None available. TECHNIQUE: Real-time ultrasound kidneys using grayscale technique. FINDINGS: RIGHT KIDNEY: 12 x 5 x 5 cm (SAG x AP x TRV). Normal echotexture. Renal cortical thickness is normal. No hydronephrosis. There is a 1.6 cm and is 0.9 cm anechoic lesions in the upper pole and mid portions. No nodular components or septations. LEFT KIDNEY: 11 x 6 x 5 cm (SAG x AP x TRV). Normal echotexture. Renal cortical thickness is normal. No hydronephrosis. 1.2 cm anechoic lesion in the upper pole of the corticomedullary junction. No septations or nodular components. US/US renal BI IMPRESSION: Bilateral renal cysts. No hydronephrosis. No discrete nephrolithiasis.. Electronically signed by: Arron Vasquez MD 06/01/2025 03:13 PM EST
--- OUTSIDE RECORDS SUMMARY | 2025-06-01 16:04 | XMS_ITS | Clinical Summary ---
Author Organization 175 [facility] Address [address] [place] [address] Phone Care Team Providers Care Geophysical E Logger Name Role Phone Ayo Hernandez MD Primary Care Provider [phone] Allergies No known active allergies Medications No known medications Surgical History Surgery Date Site/Laterality Comments OTHER [...] Procedure Name Priority Date/Time Associated Diagnosis Comments LIPID PANEL WITH REFLEX TO DIRECT LDL Routine 02/22/2025 8:19 AM EDT Kidney stones Lumbar pain from Last 3 Months or Most Recently Relevant to Health Maintenance Results * (ABNORMAL) Lipid panel with reflex to direct LDL (02/22/2025 8:19 AM EDT) Cholesterol 164 0 - 200 mg/dL LAB CHEMISTRY METHOD 02/22/2025 10:11 AM [facility] Triglycerides 148 0 - 150 mg/dL LAB CHEMISTRY METHOD 02/22/2025 10:11 AM [facility] HDL 36(L) >=40 mg/dL LAB [...] 8:19 AM EDT 02/22/2025 8:19 AM EDT Ayo Hernandez MD LAB BLOOD ORDERABLES Final Resul t [facility] [address] [place] [address], from Last 3 Months or Most Recently Relevant to Health Maintenance Insurance MEDICAID - [place] [facility] [employer] Care Teams Geophysical E Logger Relationship Specialty Start Date End Date Ayo Hernandez MD [address] [address] PCP - General Internal Medicine 01/11/25
== END 2025-06-01 14:23 | disposition home or self-care (01) ==
LOC: HO.US 14:22
PROVIDERS: PCP Internal Medicine; Visit Provider Internal Medicine Nephrology
DX: N20.0 Calculus of kidney (principal)
CPT/HCPCS: 76775

== ENCOUNTER → 2025-06-01 14:24 | Outpatient (BNV) | payer MEDICARE, SELFPAY | PROVIDERS: PCP Internal Medicine; Visit Provider Radiology Diagnostic Radiology | DX: N28.1 Cyst of kidney, acquired (principal) | CPT/HCPCS: 76775 ==